=== PATIENT | male | born 1960 | race Caucasian/White ===

== ENCOUNTER 2018-10-20 07:04 | Inpatient (IN) | payer OTHER ==
[2018-10-20 07:34] LABS: ADD MAN DIFF? NO
[2018-10-20] MEDS: ALBUTEROL 0.5% (NEB) 2.5 MG/0.5 ML AMP INH ×2 (07:35→11:01)
[2018-10-20] MEDS: IPRATROPIUM (NEB) 0.5 MG/2.5 ML AMP INH ×2 (07:35→11:01)
[2018-10-20 07:39] LABS: WHITE BLOOD COUNT 8.2 10^3/ul (4.8-10.8)
[2018-10-20 07:39] LABS: ABNORMAL IP MESSAGE 1; BASOPHILS % 0.4 % (0.0-2.0); EOSINOPHILS # 0.2 10^3/ul (0.0-0.5); EOSINOPHILS % 2.7 % (0.0-7.0); HEMATOCRIT 44.7 % (42.0-52.0); LYMPHOCYTES # 0.5 10^3/ul (0.8-2.9); LYMPHOCYTES % 6.2 % (15.0-51.0); MEAN CORPUSCULAR HEMOGLOBIN 29.3 pg (29.0-33.0); MEAN CORPUSCULAR HGB CONC 31.3 g/dl (32.0-37.0); MEAN CORPUSCULAR VOLUME 93.5 fl (82.0-101.0); MEAN PLATELET VOLUME 10.2 fl (7.4-10.4); MONOCYTE # 0.8 10^3/ul (0.3-0.9); MONOCYTES % 10.2 % (0.0-11.0); NEUTROPHIL # 6.6 10^3/ul (1.6-7.5); NEUTROPHILS % 80.3 % (39.0-77.0); PLATELET COUNT 148 10^3/UL (140-415); POSITIVE DIFF @See below; RED BLOOD COUNT 4.78 10^6/ul (4.70-6.10); RED CELL DISTRIBUTION WIDTH 14.5 % (11.5-14.5)
[2018-10-20] MEDS: FUROSEMIDE 40 MG INJ IV ×3 (07:39→16:08)
[2018-10-20 07:59] LABS: INR 1.09; PARTIAL THROMBOPLASTIN TIME 30.3 Sec (23.0-35.0); PROTIME 14.2 Sec (11.9-14.9); PT RATIO 1.1
[2018-10-20 08:02] LABS: LACTIC ACID 1.2 mmol/L (0.5-2.0)
[2018-10-20 08:04] LABS: ALANINE AMINOTRANSFERASE 27 IU/L (13-69); ALBUMIN/GLOBULIN RATIO 1.14; ALKALINE PHOSPHATASE 93 IU/L (42-121); ANION GAP 7 (5-13); ASPARTATE AMINO TRANSFERASE 32 IU/L (15-46); BILIRUBIN,INDIRECT 1.3 mg/dl (0-1.1); BILIRUBIN,TOTAL 1.3 mg/dl (0.2-1.3); BLOOD UREA NITROGEN 21 mg/dl (7-20); CALCIUM 9.1 mg/dl (8.4-10.2); CARBON DIOXIDE 31 mmol/L (21-31); CHLORIDE 102 mmol/L (97-110); CREATINE KINASE 102 IU/L (23-200); CREATININE 1.08 mg/dl (0.61-1.24); Estimated GFR > 60 mL/min (>60); GLUCOSE 123 mg/dl (70-220); POTASSIUM 4.6 mmol/L (3.5-5.1); SODIUM 140 mmol/L (135-144); TOTAL PROTEIN 7.5 g/dl (6.1-8.1)
[2018-10-20 08:12] LABS: CK INDEX 5.1
[2018-10-20 08:17] LABS: TROPONIN-I 0.012 ng/ml (0.000-0.120)
[2018-10-20 08:21] LABS: B-TYPE NATRIURETIC PEPTIDE 1040 PG/ML (0-125)
[2018-10-20] MEDS: METHYLPREDNISOLONE 125 MG INJ IV (08:39)
[2018-10-20] MEDS: LORAZEPAM 2 MG INJ IV (09:26)
[2018-10-20] MEDS ORDERED: ONDANSETRON 4 MG INJ IV ×2 (10:00→13:30)
[2018-10-20] MEDS ORDERED: ACETAMINOPHEN 325 MG TAB PO ×2 (10:00→13:30)
[2018-10-20 11:24] LABS: AADO2 Arterial 345.2 mmHg (7.0-24.0); Allen Test ACCEPTAB; Arterial Blood Gas Oxygen Sat 98.6 mmHG (95.0-98.0); Arterial COHb 0.7 % (0.0-3.0); Arterial Fraction of Oxyhgb 97.5 % (93.0-99.0); Arterial HCO3 30.6 mmol/L (22.0-26.0); Arterial MetHb 0.4 % (0.0-1.5); Arterial pCO2 53.3 mmhg (35-45); Blood Gas IEPAP 15/5; Blood Gas PS 10; MODE MASK - BIPAP; Site Left Radial
[2018-10-20] MEDS ORDERED: morphine 2 MG INJ IV (13:30)
[2018-10-20] MEDS ORDERED: HYDROCODONE/APAP (5/325) TAB PO (13:30)
[2018-10-20] MEDS ORDERED: DOCUSATE SODIUM 100 MG CAP PO (13:30)
[2018-10-20] MEDS ORDERED: NACL 0.9% 3 ML SYG IV (13:30)
[2018-10-20] MEDS: hydrALAzine 20 MG INJ IV ×2 (16:07→21:32)
[2018-10-20] MEDS: ZOLPIDEM 5 MG TAB PO ×2 (22:20→22:29)
[2018-10-21] MEDS: FUROSEMIDE 40 MG INJ IV (05:32)
[2018-10-21 06:08] LABS: ADD MAN DIFF? NO
[2018-10-21 06:17] LABS: ABNORMAL IP MESSAGE 1; BASOPHILS % 0.1 % (0.0-2.0); HEMATOCRIT 46.8 % (42.0-52.0); HEMOGLOBIN 15.4 g/dl (14.0-18.0); LYMPHOCYTES # 0.6 10^3/ul (0.8-2.9); LYMPHOCYTES % 3.8 % (15.0-51.0); MEAN CORPUSCULAR HEMOGLOBIN 29.6 pg (29.0-33.0); MEAN CORPUSCULAR HGB CONC 32.9 g/dl (32.0-37.0); MEAN PLATELET VOLUME 10.8 fl (7.4-10.4); MONOCYTE # 0.4 10^3/ul (0.3-0.9); MONOCYTES % 2.6 % (0.0-11.0); NEUTROPHIL # 14.1 10^3/ul (1.6-7.5); NEUTROPHILS % 92.7 % (39.0-77.0); PLATELET COUNT 180 10^3/UL (140-415); POSITIVE DIFF @See below; RED CELL DISTRIBUTION WIDTH 14.6 % (11.5-14.5)
[2018-10-21 06:17] LABS: WHITE BLOOD COUNT 15.2 10^3/ul (4.8-10.8)
[2018-10-21 06:38] LABS: ANION GAP 12 (5-13); BLOOD UREA NITROGEN 31 mg/dl (7-20); CALCIUM 9.3 mg/dl (8.4-10.2); CARBON DIOXIDE 28 mmol/L (21-31); CHLORIDE 100 mmol/L (97-110); CHOL/HDL RATIO 4.4 RATIO; CHOLESTEROL 173 mg/dl (100-200); CREATININE 1.16 mg/dl (0.61-1.24); Estimated GFR > 60 mL/min (>60); GLUCOSE 215 mg/dl (70-220); HDL CHOLESTEROL 39 mg/dl (30-78); LDL CHOLESTEROL,CALCULATED 122 mg/dl; MAGNESIUM 1.9 mg/dl (1.7-2.5); PHOSPHORUS 3.4 mg/dl (2.5-4.9); POTASSIUM 3.7 mmol/L (3.5-5.1); SODIUM 140 mmol/L (135-144); TRIGLYCERIDES 59 mg/dl (0-149)
[2018-10-21 06:44] LABS: B-TYPE NATRIURETIC PEPTIDE 1880 PG/ML (0-125)
[2018-10-21] MEDS: ENOXAPARIN 40 MG/0.4 ML SYG SC (08:10)
[2018-10-21] MEDS: HYDROCHLOROTHIAZIDE 25 MG TAB PO (08:10)
[2018-10-21] MEDS: hydrALAzine 20 MG INJ IV (11:38)
== END 2018-10-21 16:17 | disposition home or self-care (01) | DRG 191 ==
LOC: E/R 07:04 → 6WM 09:59
DX: J44.1 Chronic obstructive pulmonary disease with (acute) exacerbation (principal); E66.2 Morbid (severe) obesity with alveolar hypoventilation; E87.3 Alkalosis; E66.01 Morbid (severe) obesity due to excess calories; Z68.39 Body mass index [BMI] 39.0-39.9, adult; R06.03 Acute respiratory distress; R06.89 Other abnormalities of breathing; Z87.891 Personal history of nicotine dependence
CPT/HCPCS: 36415; 36600; 71045; 80048; 80053; 80061; 82550; 82553; 82803; 83036; 83605; 83735; 83880; 84100; 84484; 85025; 85610; 85730; 87040-91; 90686; 93005; 94644; 94645; 94660; 96374; 96375; 99291-25